=== PATIENT | female | born 1965 | race Caucasian/White ===

== ENCOUNTER 2020-09-14 04:51 | Day surgery (SDC) | payer OTHER ==
[2020-09-11 15:14] VITALS: BMI 23.2
[2020-09-14 11:05] VITALS: TEMP 97.8
[2020-09-14 11:56] VITALS: BP 110/64; PULSE 62
== END 2020-09-14 12:15 | disposition home or self-care (01) ==
LOC: JASU-ENDO 04:51
PROVIDERS: ATTEND Internal Medicine Gastroenterology
PROC: 0DB98ZX Excision of Duodenum, Via Natural or Artificial Opening Endoscopic, Diagnostic (ICD-10-PCS; 2020-09-14)
PROC: 0DB68ZX Excision of Stomach, Via Natural or Artificial Opening Endoscopic, Diagnostic (ICD-10-PCS; 2020-09-14)
PROC: 0DBP8ZX Excision of Rectum, Via Natural or Artificial Opening Endoscopic, Diagnostic (ICD-10-PCS; principal; 2020-09-14 10:21)
PROC: 0DBN8ZX Excision of Sigmoid Colon, Via Natural or Artificial Opening Endoscopic, Diagnostic (ICD-10-PCS; 2020-09-14 10:21)
DX: Z12.11 Encounter for screening for malignant neoplasm of colon (principal); Z86.010 Personal history of colon polyps; Z80.0 Family history of malignant neoplasm of digestive organs; K62.1 Rectal polyp; K64.8 Other hemorrhoids; D12.5 Benign neoplasm of sigmoid colon; K57.30 Diverticulosis of large intestine without perforation or abscess without bleeding; K31.7 Polyp of stomach and duodenum
CPT/HCPCS: 88305-TC; 88342-TC

== ENCOUNTER 2022-08-31 10:06 | Emergency (ER) | payer OTHER ==
[2022-08-31] MEDS ORDERED: morphine CARPU-JECT 2 MG/1 ML DISP.SYRIN IVPUSH ONE (10:18)
[2022-08-31] MEDS ORDERED: morphine SULFATE 4 MG/ML VIAL ONE (10:22)
[2022-08-31 10:46] VITALS: TEMP 98; BMI 24.4
[2022-08-31] MEDS ORDERED: KETAMINE HCL 200 MG/20 ML VIAL IVPUSH ONE (11:23)
[2022-08-31] MEDS ORDERED: KETAMINE HCL 200 MG/20 ML VIAL ONE (12:10)
[2022-08-31 12:49] VITALS: BP 143/65; PULSE 92
[2022-08-31 12:50] VITALS: RESP 16
== END 2022-08-31 14:16 | disposition home or self-care (01) ==
LOC: FER 10:06
PROC: 0RSJXZZ Reposition Right Shoulder Joint, External Approach (ICD-10-PCS; principal; 2022-08-31)
PROC: 3E033GC Introduction of Other Therapeutic Substance into Peripheral Vein, Percutaneous Approach (ICD-10-PCS; 2022-08-31)
DX: M25.511 Pain in right shoulder (principal); S43.004D Unspecified dislocation of right shoulder joint, subsequent encounter; W19.XXXD Unspecified fall, subsequent encounter
CPT/HCPCS: 73030-TC-RT-FY; 73070-TC-RT-FY; 99285-25